=== PATIENT | male | born 1960 ===

== ENCOUNTER 2017-09-01 06:28 | Day surgery (SDC) | payer OTHER ==
[2016-06-09 07:20] VITALS: BMI 24.9
[2017-09-01] MEDS ORDERED: Propofol 10 mg/ml Inj (20 ML) ONE (08:19)
[2017-09-01] MEDS ORDERED: Lidocaine Hydrochloride 5 ML INJ ONE (08:19)
[2017-09-01] MEDS ORDERED: Lactated Ringer's 1,000 ML IV ONE (08:20)
[2017-09-01 09:02] VITALS: TEMP 97.5; O2SAT 100
[2017-09-01 09:45] VITALS: BP 142/90; PULSE 67; RESP 20
== END 2017-09-01 09:35 | disposition home or self-care (01) ==
LOC: C.ENDO 06:28
PROVIDERS: ATTEND Internal Medicine Gastroenterology
DX: K74.60 Unspecified cirrhosis of liver (principal); I85.10 Secondary esophageal varices without bleeding; K29.50 Unspecified chronic gastritis without bleeding
CPT/HCPCS: 43239; 43244; 88305; J2704; J7120

== ENCOUNTER 2017-11-02 07:35 | Day surgery (SDC) | payer OTHER ==
[2017-11-01 14:07] VITALS: BMI 23.7
[2017-11-02 07:55] VITALS: O2SAT 100
[2017-11-02] MEDS ORDERED: Lactated Ringer's 500 ML IV ONE (08:59)
[2017-11-02] MEDS ORDERED: Propofol 10 mg/ml Inj (20 ML) ONE (09:16)
[2017-11-02] MEDS ORDERED: Lidocaine Hydrochloride 5 ML INJ ONE (09:16)
--- NOTE | 2017-11-02 09:16 | CP.SDSHP ---
Same Day Surgery H & P - History Proposed Procedure: EGD Pre-Op Diagnosis: variceal surveillance - Previous Medical/Surgical History Comments: cirrhosis - Allergies Allergies: Allergies SEASONAL Allergy (Intermediate, Uncoded 06/09/16 07:19) CONGESTION "RUNNY NOSE" - Physical Exam General Appearance: NAD Vital Signs: Vital Signs 11/02/17 07:49 Temperature 97.6 F Pulse Rate 70 Respiratory 19 Rate Blood Pressure 120/85 O2 Sat by Pulse 100 Oximetry Mental Status: Alert & Oriented x3 Neuro: WNL Heart: WNL Lungs: WNL GI: WNL - {Optional Preform as Required} Abdomen: WNL - Impression Pt. Evaluated Today:Candidate for Anesthesia & Procedure: Yes - Date & Time Date: 11/02/17 Time: 09:16 Short Stay Discharge - Short Stay Discharge Admitting Diagnosis/Reason for Visit: ESOPHAGEAL VARICES Disposition: HOME/ ROUTINE
[2017-11-02 09:56] VITALS: TEMP 97
[2017-11-02 10:15] VITALS: RESP 14
[2017-11-02 10:21] VITALS: BP 129/79; PULSE 63
== END 2017-11-02 10:20 | disposition home or self-care (01) ==
LOC: C.ENDO 07:35
PROVIDERS: ATTEND Internal Medicine Gastroenterology
DX: I85.00 Esophageal varices without bleeding (principal); K25.9 Gastric ulcer, unspecified as acute or chronic, without hemorrhage or perforation; K26.9 Duodenal ulcer, unspecified as acute or chronic, without hemorrhage or perforation; K31.9 Disease of stomach and duodenum, unspecified; K74.60 Unspecified cirrhosis of liver
CPT/HCPCS: 43239; 88305; J2704; J7120

== ENCOUNTER 2017-12-15 08:21 | Day surgery (SDC) | payer OTHER ==
[2017-11-01 14:07] VITALS: BMI 23.7
[2017-12-15] MEDS ORDERED: Propofol 10 mg/ml Inj (20 ML) ONE (11:09)
[2017-12-15] MEDS ORDERED: Lactated Ringer's 1,000 ML IV ONE ×2 (11:10)
--- NOTE | 2017-12-15 11:10 | CP.SDSHP ---
Same Day Surgery H & P - History Proposed Procedure: EGD Pre-Op Diagnosis: cirrhosis, h/o gastric ulcer - Allergies Allergies: Allergies SEASONAL Allergy (Intermediate, Uncoded 06/09/16 07:19) CONGESTION "RUNNY NOSE" - Physical Exam General Appearance: NAD Vital Signs: Vital Signs 12/15/17 08:56 Temperature 98 F Pulse Rate 67 Respiratory 19 Rate Blood Pressure 109/56 L O2 Sat by Pulse 99 Oximetry Mental Status: Alert & Oriented x3 Neuro: WNL Heart: WNL Lungs: WNL GI: WNL - {Optional Preform as Required} Abdomen: WNL - Impression Pt. Evaluated Today:Candidate for Anesthesia & Procedure: Yes - Date & Time Date: 12/15/17 Time: 11:10 Short Stay Discharge - Short Stay Discharge Admitting Diagnosis/Reason for Visit: ESOPHAGEAL VARICES Disposition: HOME/ ROUTINE
[2017-12-15 12:08] VITALS: TEMP 96.8; O2SAT 100
[2017-12-15 12:10] VITALS: RESP 16
[2017-12-15 12:21] VITALS: BP 133/85; PULSE 72
== END 2017-12-15 12:18 | disposition home or self-care (01) ==
LOC: C.ENDO 08:21
PROVIDERS: ATTEND Internal Medicine Gastroenterology
DX: I85.00 Esophageal varices without bleeding (principal); K29.70 Gastritis, unspecified, without bleeding; K74.60 Unspecified cirrhosis of liver; Z87.11 Personal history of peptic ulcer disease
CPT/HCPCS: 43235; J2001; J2704; J7120